=== PATIENT | male | born 1940 | race Caucasian/White ===

== ENCOUNTER 2025-03-19 09:30 | Inpatient (IN) | payer MEDICARE ==
[2025-03-19] MEDS ORDERED: Melatonin 3 MG TAB PO PRN (10:08)
[2025-03-19] MEDS ORDERED: Acetaminophen 325 MG TAB PO PRN (10:08)
[2025-03-19] MEDS: cefTRIAXone\\ROCEPHIN 1 GM in Sodium Chloride 0.9% 100 ML IVPB SCH (12:04)
[2025-03-19 14:39] VITALS: BMI 27.5
[2025-03-19] MEDS: Furosemide 40 MG (4 mL) VIAL SLOW IVP SCH (15:06)
[2025-03-19] MEDS: Carvedilol 6.25 MG TAB PO SCH (17:55)
[2025-03-19] MEDS: Famotidine 20 MG TAB PO SCH (20:48)
[2025-03-19] MEDS ORDERED: Apixaban 5 MG TAB PO SCH (21:00)
[2025-03-20 05:21] LABS: Platelet Count 108 10x3/uL (150-450)
[2025-03-20 05:22] LABS: #Basophils 0.05 10x3/uL (0.0-0.2); #Eosinophils 0.51 10x3/uL (0.0-0.5); #Monocytes 0.44 10x3/uL (0.0-1.1); #Neutrophils 4.93 10x3/uL (1.5-8.4); %Basophils 0.7 % (0.0-2.0); %Eosinophils 7.5 % (0.0-6.0); %Lymphocytes 12.9 % (18.0-47.0); %Monocytes 6.4 % (0.0-10.0); %Neutrophils 72.1 % (40.0-75.0); Hematocrit 39.6 % (38.8-50.0); Hemoglobin 13.4 g/dL (13.5-17.5); Mean Corpuscular Hemoglobin 33.1 pg (27.0-33.0); Mean Corpuscular Volume 97.8 fL (81.2-95.1); Red Blood Cell (RBC) Count 4.05 10x6/uL (4.32-5.72); White Blood Cell (WBC) Count 6.84 10x3/uL (3.5-10.5)
[2025-03-20 05:32] LABS: Anion Gap 10 mmol/L (10-20); BUN (Urea Nitrogen) 27 mg/dL (8.4-25.7); Calc. Creatinine Clearance 52 mL/min (70-130); Calcium 9.1 mg/dL (7.8-10.44); Carbon Dioxide 29 mmol/L (23-31); Chloride 109 mmol/L (98-107); Glucose 94 mg/dL (83-110); Potassium 3.9 mmol/L (3.5-5.1); Sodium 144 mmol/L (136-145)
[2025-03-20] MEDS ORDERED: Atenolol 50 MG TAB PO SCH (09:00)
[2025-03-20] MEDS: FLU (Fluad Triv) 25-26 (65UP)PF 45 MCG/0.5 ML Syringe IM ONE (09:36)
[2025-03-20] MEDS: Ezetimibe 10 MG TAB PO SCH (09:42)
[2025-03-20] MEDS: Enoxaparin 100 MG (1 mL) SYRINGE SC SCH ×2 (09:42→20:56)
[2025-03-20] MEDS ORDERED: Communication Order-Pharmacy FS SCH (10:30)
[2025-03-20] MEDS: Famotidine 20 MG TAB PO SCH (21:22)
[2025-03-21 07:00] LABS: Platelet Count 101 10x3/uL (150-450)
[2025-03-21 07:01] LABS: #Basophils 0.06 10x3/uL (0.0-0.2); #Eosinophils 0.42 10x3/uL (0.0-0.5); #Monocytes 0.37 10x3/uL (0.0-1.1); #Neutrophils 3.70 10x3/uL (1.5-8.4); %Basophils 1.1 % (0.0-2.0); %Eosinophils 7.5 % (0.0-6.0); %Lymphocytes 18.0 % (18.0-47.0); %Monocytes 6.6 % (0.0-10.0); %Neutrophils 66.4 % (40.0-75.0); Hematocrit 38.8 % (38.8-50.0); Hemoglobin 13.1 g/dL (13.5-17.5); Mean Corpuscular Hemoglobin 32.7 pg (27.0-33.0); Mean Corpuscular Volume 96.8 fL (81.2-95.1); Red Blood Cell (RBC) Count 4.01 10x6/uL (4.32-5.72); White Blood Cell (WBC) Count 5.57 10x3/uL (3.5-10.5)
[2025-03-21 07:06] LABS: INR-International Normal Ratio 1.0; PTT 31.4 sec (22.0-33.0); Prothrombin Time 11.0 sec (9.5-12.1)
[2025-03-21 07:18] LABS: ALT (SGPT) 32 U/L (Less than 45); AST (SGOT) 24 U/L (11-34); Albumin 3.4 g/dL (3.1-4.5); Alkaline Phosphatase 73 U/L (40-110); Anion Gap 14 mmol/L (10-20); BUN (Urea Nitrogen) 24 mg/dL (8.4-25.7); Bilirubin, Total 0.9 mg/dL (0.3-1.2); Calc. Creatinine Clearance 51 mL/min (70-130); Calcium 8.9 mg/dL (7.8-10.44); Carbon Dioxide 24 mmol/L (23-31); Chloride 109 mmol/L (98-107); Globulin 2.5 g/dL (2.4-3.5); Glucose 92 mg/dL (83-110); Potassium 3.6 mmol/L (3.5-5.1); Sodium 143 mmol/L (136-145)
[2025-03-21] MEDS ORDERED: Iopamidol 300 61% 100 ML VIAL FS ONE (08:31)
[2025-03-21] MEDS ORDERED: Lidocaine 1% (PF) 30 ML VIAL ONE (13:13)
[2025-03-21] MEDS ORDERED: PHENYLEPHRINE-NS 100 MCG/ML 10 ML SYRINGE ONE (13:13)
[2025-03-21] MEDS ORDERED: Heparin 10,000 UNITS/ 10 ML VIAL ONE (13:14)
[2025-03-21] MEDS ORDERED: Acetaminophen/Codeine 30-300mg Tablet PO PRN ×2 (17:37)
[2025-03-21] MEDS ORDERED: Nitroglycerin 0.4 MG TAB (25 Tab Bottle) SL PRN (17:37)
[2025-03-22] MEDS: Enoxaparin 30 MG (0.3 mL) SYRINGE SC SCH (15:45)
[2025-03-22] MEDS: Aspirin 81 mg Enteric Coated Tablet PO SCH (15:45)
[2025-03-23] MEDS: Aspirin 81 mg Enteric Coated Tablet PO SCH (08:39)
[2025-03-23 19:41] VITALS: BP 133/64; TEMP 98
== END 2025-03-23 22:20 | disposition short-term general hospital (02) | DRG 286 ==
LOC: CSHTELE 10:05 → OBSVTOIN 03-21 07:31
PROVIDERS: ADMIT Hospitalist; ATTEND Family Medicine
PROC: 3E0234Z Introduction of Serum, Toxoid and Vaccine into Muscle, Percutaneous Approach (ICD-10-PCS; 2025-03-19)
PROC: 3E03329 Introduction of Other Anti-infective into Peripheral Vein, Percutaneous Approach (ICD-10-PCS; 2025-03-19)
PROC: 4A023N7 Measurement of Cardiac Sampling and Pressure, Left Heart, Percutaneous Approach (ICD-10-PCS; principal; 2025-03-21)
PROC: B2111ZZ Fluoroscopy of Multiple Coronary Arteries using Low Osmolar Contrast (ICD-10-PCS; 2025-03-21)
PROC: B2151ZZ Fluoroscopy of Left Heart using Low Osmolar Contrast (ICD-10-PCS; 2025-03-21)
DX: I13.0 Hypertensive heart and chronic kidney disease with heart failure and stage 1 through stage 4 chronic kidney disease, or unspecified chronic kidney disease (principal); I50.31 Acute diastolic (congestive) heart failure; N39.0 Urinary tract infection, site not specified; N17.9 Acute kidney failure, unspecified; N18.31 Chronic kidney disease, stage 3a; I48.0 Paroxysmal atrial fibrillation; Z88.1 Allergy status to other antibiotic agents; Z95.0 Presence of cardiac pacemaker; Z88.8 Allergy status to other drugs, medicaments and biological substances; Z85.51 Personal history of malignant neoplasm of bladder; Z90.49 Acquired absence of other specified parts of digestive tract; Z98.890 Other specified postprocedural states; Z98.52 Vasectomy status; Z79.82 Long term (current) use of aspirin; Z79.899 Other long term (current) drug therapy; Z23 Encounter for immunization
CPT/HCPCS: 36415; 80048; 80053; 83880; 85025; 85610; 85730; 93005; 93010; 93306; 93459; 94660; 96372; 96374; 96376; 99152; 99153; C1760; C1769; G0378; J0461; J0696; J1644; J1650; J1940; J2003; J2250; J7030; Q9967